=== PATIENT | female | born 1950 | race Caucasian/White ===

== ENCOUNTER 2018-08-12 12:25 | Emergency (ER) | payer SELFPAY ==
--- NOTE | 2018-08-12 12:49 | EDPHY ---
H & P Stated Complaint: Left ankle injury Time Seen by Provider: 08/12/18 12:46 HPI/ROS: HPI: This is a 68-year-old female who presents with Chief Complaint: Left ankle injury Location: Left ankle Quality: Injury Duration: 1 hr prior to arrival Signs and Symptoms: No bleeding, no radiation, no numbness, no weakness, no tingling, no incontinence, no decreased range of motion, no swelling, + pain, no fever Timing: Acute Severity: Moderate Context: Patient was walking down the stairs while wearing tennis shoes when she accidentally twisted her left ankle. She reports that she felt immediate, constant, moderate, nonradiating pain in the lateral aspect of her ankle. She was ambulatory at the scene. She denies any swelling. There is minimal pain at rest. Pain is increased with weight-bearing and plantar flexion. Denies radiation, paresthesias, decreased range of motion. Modifying Factors: None Comment: ROS: A comprehensive 10 system review of systems is otherwise negative aside from elements mentioned in the history of present illness. MEDICAL/SURGICAL/SOCIAL HISTORY: Medical history: "brain seizures," HTN, (resolved) depression, TBI (10/09), ETOH (sober 14.5 years), breast CA (22 year survivor) surgical- L and R mastectomy, heart cath at 3 yo, eye surgery 4 yrs ago Social history: Retired. Nonsmoker. CONSTITUTIONAL: Extremely polite and cooperative elderly white female, awake and alert, no obvious distress HEENT: Atraumatic and normocephalic. NECK: supple EXTREMITIES: 2/2 pulses, strength 5/5, left Ankle: Mild tenderness over the lateral malleolus but no swelling, no ecchymosis appreciated. Plantar flexion to 50, dorsiflexion to 20. Foot inversion to 35 degree. No tenderness/ swelling Anterior talofibular ligament. No tenderness/swelling Calcaneofibular ligament, no tenderness/swelling posterior talofibular ligament, no tenderness/ swelling posterior inferior tibiofibular ligament. Achilles tendon intact. DIP/ PIP/MCP flexion/extension intact with good light touch sensation. no deformities , no clubbing, no cyanosis or edema. NEUROLOGICAL: no focal neuro deficits. GCS 15. Light touch sensation intact. SKIN: Warm and dry, no erythema. no rash. Good capillary refill. Source: Patient Exam Limitations: No limitations - Personal History Current Tetanus Diphtheria and Acellular Pertussis (TDAP): Yes Tetanus Vaccine Date: 2012 - Medical/Surgical History Hx Asthma: No Hx Chronic Respiratory Disease: No Hx Diabetes: No Hx Cardiac Disease: No Hx Renal Disease: No Hx Cirrhosis: No Hx Alcoholism: Yes Hx HIV/AIDS: No Hx Splenectomy or Spleen Trauma: No Other PMH: medical- "brain seizures," HTN, (resolved) depression, TBI (10/09), ETOH (sober 14.5 years), breast CA (22 year survivor). surgical- L and R mastectomy, heart cath at 3 yo, eye surgery 4 yrs ago - Social History Smoking Status: Former smoker Constitutional: Initial Vital Signs Temperature (C) 36.8 C 08/12/18 12:27 Heart Rate 66 08/12/18 12:27 Respiratory Rate 16 08/12/18 12:27 Blood Pressure 181/91 H 08/12/18 12:27 O2 Sat (%) 92 08/12/18 12:27 O2 Delivery Mode Room Air Allergies/Adverse Reactions: Penicillins Allergy (Verified 03/24/14 10:01) vancomycin Allergy (Verified 03/24/14 10:01) Home Medications: Medication Instructions Recorded Sertraline HCl 08/12/18 Wellbutrin Sr 08/12/18 Medical Decision Making - Diagnostics Imaging Results: Imaging Impressions Ankle X-Ray 08/12/18 12:34 Impression: There is no acute fracture identified. Procedures: Procedure: Splint placement. A left ankle stirrup splint and crutches were applied by the Emergency Room emergency medical technician/driver. After application of the splint I returned and re-examined the patient. The splint was adequately immobilizing the joint and distal to the splint the patient's circulation and sensation was intact. ED Course/Re-evaluation: Ice pack applied Left ankle x-ray ordered my read via PAC shows no tibia fracture, no fibula fracture, no 5th metatarsal fracture. Patient has an ankle sprain, placed in ankle stirrup splint and crutches provided No signs of neurovascular compromise/tenting of skin/compartment syndrome/ extremities and joints examined above and below area of concern and are neurovascularly intact. This patient was seen under the supervision of my secondary supervising physician. I evaluated care for this patient independently. Discussed this patient with Dr. Huff. Differential Diagnosis: Ankle injury differential diagnosis includes but is not limited to tibia fracture, fibula fracture, metatarsal fracture, LisFranc fracture, achilles tendon rupture, sprain. Departure - Departure Disposition: Home, Routine, Self-Care Clinical Impression: Left ankle sprain Qualifiers: Encounter type: initial encounter Involved ligament of ankle: calcaneofibular ligament Qualified Code(s): S93.412A - Sprain of calcaneofibular ligament of left ankle, initial encounter Condition: Good Instructions: Ankle Stirrup Splint (ED), Ankle Sprain (ED) Additional Instructions: Wear the ankle stirrup splint while out of bed until pain free. Use crutches to aid ambulation. Start with toe-touch weight-bearing status and slowly advance as tolerated. Take Tylenol 650 mg every 4 hours and/or Ibuprofen 600 mg every 8 hours with food as needed for pain. Apply ice for 30 minutes at a time; 2-3 times per day for the next 1-2 days. Follow up with Orthopedics in 1-2 weeks if symptoms persist at which time they will evaluate and recommend with you if conservative management versus MRI is indicated. The x-rays obtained in the emergency department today demonstrate no evidence of an obvious fracture. Return to the ER immediately if you experience new or worsening pain, discoloration, numbness, tingling, or any other symptoms that concern you. Referrals: Terry Leung MD [Medical Doctor] - Follow Up Only If Needed
[2018-08-12 13:04] VITALS: BP 161/96
== END 2018-08-12 13:41 | disposition home or self-care (01) ==
LOC: EDUNIT#
DX: S93.412A Sprain of calcaneofibular ligament of left ankle, initial encounter (principal); Z87.891 Personal history of nicotine dependence; X50.9XXA Other and unspecified overexertion or strenuous movements or postures, initial encounter; Y92.9 Unspecified place or not applicable; Y93.9 Activity, unspecified; Y99.9 Unspecified external cause status
CPT/HCPCS: L4350

== ENCOUNTER → 2019-03-05 | Outpatient (CLI) | payer OTHER | LOC: BMCIMAGING 11:02 | PROVIDERS: ATTEND Internal Medicine Geriatric Medicine | DX: M81.0 Age-related osteoporosis without current pathological fracture (principal); Z78.0 Asymptomatic menopausal state; Z85.3 Personal history of malignant neoplasm of breast ==

== ENCOUNTER 2019-05-14 15:37 | Emergency (ER) | payer OTHER | END 2019-05-14 17:35 | disposition home or self-care (01) ==